=== PATIENT | male | born 1955 | race Caucasian/White ===

== ENCOUNTER 2021-08-25 09:53 | Emergency (ER) | payer MEDICARE, BC ==
[2021-08-25] MEDS ORDERED: Sodium Chloride 0.9% 10 ML Syringe FLUSH PRN (11:04)
--- NOTE | 2021-08-25 11:53 | EDM.PDOC ---
ED HPI GENERAL MEDICAL PROBLEM - General Chief Complaint: Respiratory Problem Stated Complaint: POSS COVID Time Seen by Provider: 08/25/21 11:39 Source of Information: Reports: Patient, RN Notes Reviewed History Limitations: Reports: No Limitations - History of Present Illness INITIAL COMMENTS - FREE TEXT/NARRATIVE: Patient is a 66-year-old male who presents to the ER for evaluation of possible COVID-19. States that he has been sick for longer than 10 days, both he and his have been ill for that time, states that his main complaint is that everything tastes off, and that he cannot get a restful night sleep. He states that everything has been going well otherwise. His primary care provider was [facility]es[facility]. States that he is in good cardiovascular health, and still runs marathons and runs up to 1250 miles per year. Patient is afebrile at the time of triage, O2 sats are 95% on room air. Patient states he feels generally well, but was just concerned that he was not getting restful sleep so he wanted to be evaluated at this time. She was not vaccinated for COVID-19. - Related Data Allergies Allergy/AdvReac Type Severity Reaction Status Date / Time Penicillins Allergy Severe Hives Verified 08/25/21 10:33 Home Meds: Home Meds Lactobacillus Acidophilus [Probiotic] 1 each PO DAILY 08/25/21 [History] Past Medical History Gastrointestinal History: Reports: Other (See Below) Other Gastrointestinal History: Diverticulitis - Infectious Disease History Infectious Disease History: Reports: Novel Coronavirus - Past Surgical History GI Surgical History: Reports: Other (See Below) Other GI Surgeries/Procedures: Sigmoid Colon Removed 2004 Social & Family History - Tobacco Use Tobacco Use Status *Q: Never Tobacco User - Caffeine Use Caffeine Use: Reports: Coffee - Recreational Drug Use Recreational Drug Use: No ED ROS GENERAL - Review of Systems Review Of Systems: Comprehensive ROS is negative, except as noted in HPI. ED EXAM, GENERAL - Physical Exam Exam: See Below Exam Limited By: No Limitations General Appearance: Alert, WD/WN, No Apparent Distress Respiratory/Chest: No Respiratory Distress, Lungs Clear, Normal Breath Sounds, No Accessory Muscle Use, Chest Non-Tender Cardiovascular: Normal Peripheral Pulses, Regular Rate, Rhythm, No Edema GI/Abdominal: Normal Bowel Sounds, Soft, Non-Tender, No Distention, No Mass Extremities: Normal Inspection, Normal Capillary Refill Neurological: Alert, Oriented, Normal Cognition, No Motor/Sensory Deficits Psychiatric: Normal Affect, Normal Mood Skin Exam: Warm, Dry, Intact, Normal Color, No Rash Course - Vital Signs Last Recorded V/S: Last Vital Signs Temp 96.6 F L 08/25/21 10:30 Pulse 69 08/25/21 10:30 Resp 16 08/25/21 10:30 BP 131/82 08/25/21 10:30 Pulse Ox 95 08/25/21 10:30 - Orders/Labs/Meds Orders: Active Orders 24 hr Category Date Time Status Peripheral IV Care [RC] . DIRECTED Care 08/25/21 11:04 Active Chest 1V Frontal [CR] Stat Exams 08/25/21 11:03 Taken Sodium Chloride 0.9% [Saline Flush] Med 08/25/21 11:04 Active 10 ml FLUSH ASDIRECTED PRN Peripheral IV Insertion Adult [OM.PC] Routine Oth 08/25/21 11:04 Ordered Medication Orders Sodium Chloride (Sodium Chloride 0.9% 10 Ml Syringe) 10 ml FLUSH ASDIRECTED PRN PRN Reason: Keep Vein Open Labs: Laboratory Tests 08/25/21 08/25/21 08/25/21 Range/Units 10:40 11:03 11:36 WBC 4.56 (4.23-9.07) K/mm3 RBC 4.58 L (4.63-6.08) M/mm3 Hgb 13.0 L (13.7-17.5) gm/dl Hct 39.1 L (40.1-51.0) % MCV 85.4 (79.0-92.2) fl MCH 28.4 (25.7-32.2) pg MCHC 33.2 (32.2-35.5) g/dl RDW Std Deviation 40.0 (35.1-43.9) fL Plt Count 649 H (163-337) K/mm3 MPV 9.1 L (9.4-12.3) fl Neut % (Auto) 57.0 (34.0-67.9) % Lymph % (Auto) 23.9 (21.8-53.1) % [place] % (Auto) 16.9 H (5.3-12.2) % Eos % (Auto) 0.4 L (0.8-7.0) Baso % (Auto) 0.9 (0.1-1.2) % Neut # (Auto) 2.60 (1.78-5.38) K/mm3 Lymph # (Auto) 1.09 L (1.32-3.57) K/mm3 [place] # (Auto) 0.77 (0.30-0.82) K/mm3 Eos # (Auto) 0.02 L (0.04-0.54) K/mm3 Baso # (Auto) 0.04 (0.01-0.08) K/mm3 Manual Slide Review Abnormal smear D-Dimer, Quantitative (0.19-0.50) mg/L Sodium (136-145) mEq/L Potassium (3.5-5.1) mEq/L Chloride (98-107) mEq/L Carbon Dioxide (21-32) mEq/L Anion Gap (5-15) BUN (7-18) mg/dL Creatinine (0.7-1.3) mg/dL Est Cr Clr Drug Dosing mL/min Estimated GFR (MDRD) (>60) mL/min BUN/Creatinine Ratio (14-18) Glucose (70-99) mg/dL Calcium (8.5-10.1) mg/dL Magnesium (1.8-2.4) mg/dL Total Bilirubin (0.2-1.0) mg/dL AST (15-37) U/L ALT (16-63) U/L Alkaline Phosphatase (46-116) U/L C-Reactive Protein 5.9 H* (<1.0) mg/dL Total Protein (6.4-8.2) g/dl Albumin (3.4-5.0) g/dl Globulin gm/dL Albumin/Globulin Ratio (1-2) SARS-CoV-2 RNA ([facility]) Positive H (NEGATIVE) 08/25/21 08/25/21 Range/Units 11:36 11:36 WBC (4.23-9.07) K/mm3 RBC (4.63-6.08) M/mm3 Hgb (13.7-17.5) gm/dl Hct (40.1-51.0) % MCV (79.0-92.2) fl MCH (25.7-32.2) pg MCHC (32.2-35.5) g/dl RDW Std Deviation (35.1-43.9) fL Plt Count (163-337) K/mm3 MPV (9.4-12.3) fl Neut % (Auto) (34.0-67.9) % Lymph % (Auto) (21.8-53.1) % [place] % (Auto) (5.3-12.2) % Eos % (Auto) (0.8-7.0) Baso % (Auto) (0.1-1.2) % Neut # (Auto) (1.78-5.38) K/mm3 Lymph # (Auto) (1.32-3.57) K/mm3 [place] # (Auto) (0.30-0.82) K/mm3 Eos # (Auto) (0.04-0.54) K/mm3 Baso # (Auto) (0.01-0.08) K/mm3 Manual Slide Review D-Dimer, Quantitative 0.79 H (0.19-0.50) mg/L Sodium 143 (136-145) mEq/L Potassium 3.2 L (3.5-5.1) mEq/L Chloride 104 (98-107) mEq/L Carbon Dioxide 30 (21-32) mEq/L Anion Gap 12.2 (5-15) BUN 10 (7-18) mg/dL Creatinine 0.7 (0.7-1.3) mg/dL Est Cr Clr Drug Dosing 102.95 mL/min Estimated GFR (MDRD) > 60 (>60) mL/min BUN/Creatinine Ratio 14.3 (14-18) Glucose 92 (70-99) mg/dL Calcium 8.6 (8.5-10.1) mg/dL Magnesium 2.2 (1.8-2.4) mg/dL Total Bilirubin 0.5 (0.2-1.0) mg/dL AST 20 (15-37) U/L ALT 31 (16-63) U/L Alkaline Phosphatase 50 (46-116) U/L C-Reactive Protein (<1.0) mg/dL Total Protein 6.6 (6.4-8.2) g/dl Albumin 2.5 L (3.4-5.0) g/dl Globulin 4.1 gm/dL Albumin/Globulin Ratio 0.6 L (1-2) SARS-CoV-2 RNA ([facility]) (NEGATIVE) Meds: Medications Generic Name Dose Route Start Last Admin Trade Name Velasquez PRN Reason Stop Dose Admin Sodium Chloride 10 ml 08/25/21 11:04 Sodium Chloride 0.9% 10 Ml Syringe FLUSH ASDIRECTED PRN Keep Vein Open - Re-Assessments/Exams Free Text/Narrative Re-Assessment/Exam: 08/25/21 11:51 Patient presents to the ER for evaluation of his possible COVID-19, and a swab was taken at the time of triage, and did return positive. Labs were drawn but after a short amount of time due to prolonged wait times in the ER today. We will go ahead and await chest x-ray and labs for further evaluation. Patient is past the 10-day window for monoclonal antibody therapy, and I did give him general conservative recommendations on what to try to take and what to try to do to get a more restful night sleep. Patient verbalized understanding at this time. 08/25/21 12:22 Alysa evaluation is essentially unremarkable however the patient's D-dimer is a little elevated at 0.79, magnesium slightly low at 3.2, this is likely nutritional as he states food just does not taste good. 08/25/21 12:36 CRP is elevated at 5.9. Again patient should fare well with this as he is out of the window for any sort of monoclonal antibody therapy, and he is not hypoxic so does not necessarily need hospitalization. He is not dehydrated by any means on lab standards, so he does not need any sort of fluids. We will discharge him home at this time. Departure - Departure Time of Disposition: 12:18 Disposition: Home, Self-Care 01 Condition: Good Clinical Impression: COVID-19, Acute insomnia - Discharge Information *PRESCRIPTION DRUG MONITORING PROGRAM REVIEWED*: No *COPY OF PRESCRIPTION DRUG MONITORING REPORT IN PATIENT BLAISE: No Instructions: 10 Things You Can Do to Manage Your COVID-19 Symptoms at Home - CDC (05/17/2021), Insomnia Referrals: PCP,None [Primary Care Provider] - Forms: ED Department Discharge Additional Instructions: You were evaluated in the ER today for your possible COVID-19. Your COVID-19 swab at today's visit was positive. Your chest x-ray showed minimal signs of viral pneumonia typical with COVID-19 this time but your oxygen saturations are good at 95% on room air. Your main complaint at today's visit was lack of sleep due to some insomnia associated with COVID-19. I would recommend that you take a medicine like Tylenol or Advil PM about 1 hour prior to bedtime to see if this helps relieve some of your insomnia over the next few days. Try to keep yourself well-hydrated, clear liquid diet like Gatorade/Powerade for the next few days, multiple small meals throughout the days might also keep your body nourished enough to fight off this disease. Since you have been sick or longer than 10 days, you will no longer necessarily need to isolate or quarantine away from others. But please if you are actively coughing or otherwise continue to wear a mask in public. If you do not have a primary care provider already, I recommend that you follow- up with a provider in our clinic, any family practice provider would be able to provide you with the services. Our clinic telephone number [phone], please call in the morning to obtain an appointment with the provider, for follow-up of your symptoms that prompted your ER visit today. This would be mainly for the insomnia if it does not seem to be getting much better from Tylenol PM. Do not hesitate to return to the ER at any time if symptoms change or worsen. Sepsis Event Note (ED) - Evaluation Sepsis Screening Result: No Definite Risk - Focused Exam Vital Signs: Vital Signs Temp Pulse Resp BP Pulse Ox 08/25/21 10:30 96.6 F L 69 16 131/82 95 - My Orders Last 24 Hours: My Active Orders 08/25/21 11:03 Chest 1V Frontal [CR] Stat 08/25/21 11:04 Peripheral IV Care [RC] . DIRECTED Sodium Chloride 0.9% [Saline Flush] 10 ml FLUSH ASDIRECTED PRN Peripheral IV Insertion Adult [OM.PC] Routine - Assessment/Plan Last 24 Hours: My Active Orders 08/25/21 11:03 Chest 1V Frontal [CR] Stat 08/25/21 11:04 Peripheral IV Care [RC] . DIRECTED Sodium Chloride 0.9% [Saline Flush] 10 ml FLUSH ASDIRECTED PRN Peripheral IV Insertion Adult [OM.PC] Routine
--- NOTE | 2021-08-26 11:30 | CR ---
Chest: Portable view of the chest was obtained. Comparison: No prior chest imaging is available. Diffuse increased density is scattered throughout both sides of the chest. Heart size and mediastinum are within normal limits for portable technique. No acute osseous abnormality is appreciated. Impression: 1. Moderately severe densities within both sides of the chest highly suspicious for COVID pneumonia. Diagnostic code #3
== END 2021-08-25 12:53 | disposition home or self-care (01) ==
LOC: JD.ED 09:53
DX: U07.1 COVID-19 (principal); G47.00 Insomnia, unspecified; Z88.0 Allergy status to penicillin
CPT/HCPCS: 36415; 71045; 80053; 83735; 85025; 85379; 86140; 99283; U0002